=== PATIENT | female | born 1935 | race Caucasian/White ===

== ENCOUNTER 2018-01-08 08:05 | Day surgery (SDC) | payer OTHER ==
[2018-01-07 17:26] VITALS: BMI 22.1
[~2018-01-08 08:05] MED LIST: ACETAMINOPHEN 325 MG TABLET (FP) PO PRN; CHONDROITIN SU A/HYALUR SOD 1 KIT IO ONE; EPINEPHrine/PF 1 MG/1 ML (1:1,000) AMPULE IV ONE; LIDOCAINE HCL 1% PRESERVATIVE FREE - 30ML VIAL IO ONE; TETRACAINE 0.5% OPHTH SOLN 2 ML BOTTLE TP ONE
[2018-01-08] MEDS ORDERED: PHENYLEPHRINE 2.5% OPHTH SOLN 15 ML BOTTLE ONE (08:16)
[2018-01-08] MEDS ORDERED: CYCLOPENTOLATE HCL 1% OPHTH SOLN 2 ML BOTTLE ONE (08:16)
[2018-01-08] MEDS ORDERED: CIPROFLOXACIN 0.3% EYE DROPS 5 ML BOTTLE ONE (08:16)
[2018-01-08] MEDS ORDERED: FLURBIPROFEN 0.03% OPHTH SOLN 2.5 ML BOTTLE ONE (08:16)
[2018-01-08] MEDS ORDERED: TROPICAMIDE 1% OPHTH SOLN 15 ML BOTTLE ONE (08:17)
[2018-01-08 08:43] VITALS: TEMP 97.4
[2018-01-08] MEDS: TROPICAMIDE 1% OPHTH SOLN 15 ML BOTTLE OP SCH ×2 (08:45→09:00)
[2018-01-08] MEDS: CIPROFLOXACIN HCL 0.3% OPHTH 2.5ML BOTTLE OP SCH ×3 (08:45→09:00)
[2018-01-08] MEDS: CYCLOPENTOLATE HCL 1% OPHTH SOLN 2 ML BOTTLE OP SCH ×3 (08:45→09:00)
[2018-01-08] MEDS: FLURBIPROFEN 0.03% OPHTH SOLN 2.5 ML BOTTLE OP SCH ×3 (08:45→09:00)
[2018-01-08] MEDS: PHENYLEPHRINE 2.5% OPHTH SOLN 15 ML BOTTLE OP SCH ×3 (08:45→09:00)
[2018-01-08] MEDS ORDERED: MIDAZOLAM HCL 2 MG/2 ML SINGLE DOSE VIAL ONE (10:14)
[2018-01-08] MEDS ORDERED: TETRACAINE 0.5% OPHTH SOLN 2 ML BOTTLE ONE (10:22)
[2018-01-08] MEDS ORDERED: LIDOCAINE HCL/PF 1% SDV 5ML VIAL ONE (10:23)
[2018-01-08] MEDS ORDERED: EPINEPHrine/PF 1 MG/1 ML (1:1,000) AMPULE ONE (10:23)
[2018-01-08] MEDS ORDERED: CHONDROITIN SU A/HYALUR SOD 1 KIT ONE ×3 (10:25→11:47)
[2018-01-08] MEDS ORDERED: TETRACAINE 0.5% OPHTH SOLN 2 ML BOTTLE TP ONE (10:52)
[2018-01-08] MEDS ORDERED: POVIDONE-IODINE 5% OPHTHALMIC PREP 30 ML SOLUTION OS ONE (10:54)
[2018-01-08] MEDS ORDERED: LIDOCAINE HCL 1% PRESERVATIVE FREE - 30ML VIAL IO ONE (11:01)
[2018-01-08] MEDS ORDERED: CHONDROITIN SU A/HYALUR SOD 1 KIT IO ONE ×2 (11:01)
[2018-01-08] MEDS ORDERED: BSS (NA/CA/MG/K) BALANCED SALT SOLUTION OPHTH SOLN 15 ML BOTTLE OS ONE (11:01)
[2018-01-08] MEDS ORDERED: EPINEPHrine/PF 1 MG/1 ML (1:1,000) AMPULE SQ ONE (11:09)
[2018-01-08] MEDS ORDERED: ACETAMINOPHEN 325 MG TABLET (FP) ONE (11:49)
[2018-01-08 12:22] VITALS: BP 127/80; PULSE 54
--- NOTE | 2018-01-08 13:21 | OP ---
DATE OF OPERATION: 01/08/2018 PREOPERATIVE DIAGNOSIS: Cataract, left eye. POSTOPERATIVE DIAGNOSIS: Cataract, left eye. PROCEDURE: Phacoemulsification of left cataract with posterior chamber intraocular lens implantation. Lens used [id number], 24.5 diopter power, serial No. [id number]. SURGEON: Eliazar Cristobal M.D. ANESTHESIA: Topical MAC. COMPLICATIONS: None. DESCRIPTION OF PROCEDURE: The patient was brought to the operating room and correctly identified along with the operative site as well as the correct intraocular lens sorensen. She was then prepped and draped in the usual sterile fashion including 5% Betadine solution in the conjunctival sac and an eyelid drape. An eyelid speculum was then placed into the left eye. A paracentesis port was created and 0.5 mL of preservative free Lidocaine 1% was injected intracamerally. Viscoelastic was then injected to inflate the anterior chamber, and a temporal clear corneal wound was created. A continuous circular capsulorrhexis was performed, and the nucleus hydro-dissected and hydro-delineated with BSS. The cataract was then removed with phacoemulsification via a ijxwzy-kio-fnilwji approach, and the epinuclear material was removed, as well. Irrigation aspiration was then performed of the cortex. Inferiorly, however, the cortex was noted to be adherent and there seemed to be zonular stress while trying to aspirate the cortex despite the anterior capsule not being captured by the IA tip. The remainder of nasal, superior, and temporal cortex was then irrigated and aspirated with the IA tip, avoiding the inferior area. Viscoelastic was then injected to inflate the capsular bag, and using a dry technique, the inferior cortex was gently pulled using a 27-gauge cannula in a dry technique and then completely removed with the IA tip. This was successfully done without any further stress on the inferior zonules. The capsule and zonules were noted to be intact. Further viscoelastic was injected to inflate the capsular bag. The lens was injected into the capsular bag. The viscoelastic was then irrigated and aspirated from the eye. At the end of irrigation, the lens was noted to be well centered, covered by the anterior capsule border. There was again no evidence of any zonule dehiscence. All wounds were tested and found to be watertight. No suture was placed. Topical vancomycin was given, the eye patched and shielded, and the patient discharged from the operating room in a stable condition. ELIAZAR CRISTOBAL M.D. RUBY/[id number] MTDMandi
== END 2018-01-08 12:30 | disposition home or self-care (01) ==
LOC: JASU-SURG 08:05
PROVIDERS: ATTEND Ophthalmology
PROC: 08RK3JZ Replacement of Left Lens with Synthetic Substitute, Percutaneous Approach (ICD-10-PCS; principal; 2018-01-08 10:00)
DX: H26.9 Unspecified cataract (principal); I10 Essential (primary) hypertension; E11.9 Type 2 diabetes mellitus without complications; E78.00 Pure hypercholesterolemia, unspecified; K21.9 Gastro-esophageal reflux disease without esophagitis
CPT/HCPCS: 82962

== ENCOUNTER 2018-01-27 14:44 | Emergency (ER) | payer OTHER ==
--- NOTE | 2018-01-27 15:12 | PDOC ---
Rapid Medical Evaluation Chief Complaint: Rash Time Seen by Provider: 01/27/18 15:09 Medical Evaluation: Allergies Allergy/AdvReac Type Severity Reaction Status Date / Time No Known Allergies Allergy Verified 01/27/18 15:03 01/27/18 15:09 82 year old female with HTN, HLD, NIDDM with 2 weeks of itchy rash, seems to coincide with starting Cymbalta. No SOB. No tongue/lip swelling or throat tightness. Feels it is getting worse. Alert, oriented, no distress. Scattered papular rash, most notable on chest. Lungs CTAB. V/s unremarkable. Plans: -To FT for further evaluation.
[2018-01-27 15:13] VITALS: BP 132/61; PULSE 66; TEMP 98.6; BMI 28.3
--- NOTE | 2018-01-27 16:09 | PDOC ---
History of Present Illness - General Chief Complaint: Rash Stated Complaint: RASH Time Seen by Provider: 01/27/18 15:09 History Source: Patient Exam Limitations: No Limitations - History of Present Illness Initial Comments: 01/27/18 16:04 Best Contact: PCP: Dr. Alireza Saini Pmhx: HLD, HTN, NIDDM Pshx: N/A Allergies: NKDA 82-year-old female presents to the ER complaining of a rash to the anterior neck 2 weeks after taking Duloxetine HCL 20 mg daily. Patient states the rashes just itchy but does not seem to spread or cause any pain. Patient states she hasn't taken anything for the itch but she has continued taking the medication daily as prescribed by her PMD. Patient denies fever, chills, nausea/ vomiting, facial pains, throat swelling, difficulty swallowing, sore throat, chest pain, shortness of breath. Past History - Past Medical History Allergies/Adverse Reactions: Allergies Allergy/AdvReac Type Severity Reaction Status Date / Time No Known Allergies Allergy Verified 01/27/18 15:03 Home Medications: Ambulatory Orders Losartan/Hydrochlorothiazide [Hyzaar 100-25 Tablet] 1 each PO DAILY 09/13/15 Duloxetine HCl 20 mg PO DAILY 01/08/18 Metoprolol Tartrate 100 mg PO DAILY 01/08/18 Nitrofurantoin Macrocrystal [Nitrofurantoin] 100 mg PO BID 01/08/18 Omeprazole 40 mg PO DAILY 01/08/18 Pregabalin [Lyrica] 100 mg PO TID 01/08/18 Sitagliptin Phos/Metformin HCl [Janumet 50-500 mg Tablet] 1 each PO DAILY Anemia: No Asthma: No Cancer: No Cardiac Disorders: No CVA: No COPD: No CHF: No Dementia: No Diabetes: Yes (NIDDM) GI Disorders: No Disorders: No HTN: Yes Hypercholesterolemia: No Liver Disease: No Seizures: No Thyroid Disease: No - Surgical History Abdominal Surgery: No Appendectomy: No Cardiac Surgery: No Cholecystectomy: No Lung Surgery: No Neurologic Surgery: No Orthopedic Surgery: No - Immunization History Immunization Up to Date: Yes - Suicide/Smoking/Psychosocial Hx Smoking Status: No Smoking History: Never smoked Have you smoked in the past 12 months: No Number of Cigarettes Smoked Daily: 0 Hx Alcohol Use: No Drug/Substance Use Hx: No Substance Use Type: None Hx Substance Use Treatment: No Review of Systems - Review of Systems Able to Perform ROS?: Yes Comments:: 01/27/18 16:07 CONSTITUTIONAL: Absent: fever, chills, diaphoresis, generalized weakness, malaise, loss of appetite HEENT: Absent: rhinorrhea, nasal congestion, throat pain, throat swelling, difficulty swallowing, mouth swelling, ear pain, eye pain, visual Changes CARDIOVASCULAR: Absent: chest pain, loss of consciousness, palpitations, irregular heart rate, peripheral edema RESPIRATORY: Absent: cough, shortness of breath, dyspnea with exertion, orthopnea, wheezing, stridor, hemoptysis GASTROINTESTINAL: Absent: abdominal pain, abdominal distension, nausea, vomiting, diarrhea, constipation, melena, hematochezia GENITOURINARY: Absent: dysuria, frequency, urgency, hesitancy, hematuria, flank pain, genital pain MUSCULOSKELETAL: Absent: myalgia, arthralgia, joint swelling SKIN: Ant neck rash/+itch Absent:pallor HEMATOLOGIC/IMMUNOLOGIC: Absent: easy bleeding, easy bruising, lymphadenopathy, frequent infections ENDOCRINE: Absent: unexplained weight gain, unexplained weight loss, heat intolerance, cold intolerance NEUROLOGIC: Absent: headache, focal weakness or paresthesias, dizziness, unsteady gait, seizure, mental status changes, bladder or bowel incontinence PSYCHIATRIC: Absent: anxiety, depression, suicidal or homicidal ideation, hallucinations. Is the patient limited [place] proficient: No *Physical Exam - Vital Signs Last Vital Signs Temp Pulse Resp BP Pulse Ox 98.6 F 66 18 132/61 96 01/27/18 15:04 01/27/18 15:04 01/27/18 15:04 01/27/18 15:04 01/27/18 15:04 - Physical Exam Comments: 01/27/18 16:08 GENERAL: Well developed, well nourished. Awake and alert. No acute distress. HEENT: Normocephalic, atraumatic. PERRLA, EOMI. No conjunctival pallor. Sclera are non- icteric. Moist mucous membranes. Oropharynx is clear. NECK: Supple. Full ROM. No JVD. Carotid pulses 2+ and symmetric, without bruits. No thyromegaly. No lymphadenopathy. CARDIOVASCULAR: Regular rate and rhythm. No murmurs, rubs, or gallops. Distal pulses are 2+ and symmetric. PULMONARY: No evidence of respiratory distress. Lungs clear to auscultation bilaterally. No wheezing, rales or rhonchi. ABDOMINAL: Soft. Non-tender. Non-distended. No rebound or guarding. No organomegaly. Normoactive bowel sounds. MUSCULOSKELETAL Normal range of motion at all joints. No bony deformities or tenderness. No CVA tenderness. EXTREMITIES: No cyanosis. No clubbing. No edema. No calf tenderness. SKIN: + Anterior neck rash /no pain on palpation Warm and dry. Normal capillary refill. No rashes. No jaundice. NEUROLOGICAL: Alert, awake, appropriate. Cranial nerves 2-12 intact. No deficits to light touch and temperature in face, upper extremities and lower extremities. No motor deficits in the in face, upper extremities and lower extremities. Normoreflexic in the upper and lower extremities. Normal speech. Toes are down- going bilaterally. Gait is normal without ataxia. PSYCHIATRIC: Cooperative. Good eye contact. Appropriate mood and affect. Moderate Sedation - Procedure Monitoring Vital Signs: Vital Signs Temp Pulse Resp BP Pulse Ox 98.6 F 66 18 132/61 96 01/27/18 15:04 01/27/18 15:04 01/27/18 15:04 01/27/18 15:04 01/27/18 15:04 *DC/Admit/Observation/Transfer Diagnosis at time of Disposition: Rash - Discharge Dispostion Disposition: HOME Condition at time of disposition: Stable Decision to Admit order: No - Referrals Referrals: Librado Saini MD [Primary Care Provider] - - Patient Instructions Printed Discharge Instructions: DI for Rash Additional Instructions: Follow-up with your doctor tomorrow at 1 PM Stopped taking the medication/Duloxetine Benadryl as needed for the itch Return back to the emergency department for chest pain, shortness of breath or worsening symptoms - Post Discharge Activity Progress Note - Progress Note Progress Note: 1602hrs: Spoke to the patient's PMD/Dr. Librado Chapin. He will see the patient at 1300 hrs. tomorrow/Saturday, 01/28/2018.
== END 2018-01-27 16:23 | disposition home or self-care (01) ==
LOC: JER 14:44
DX: L27.1 Localized skin eruption due to drugs and medicaments taken internally (principal); T43.215A Adverse effect of selective serotonin and norepinephrine reuptake inhibitors, initial encounter; Y92.038 Other place in apartment as the place of occurrence of the external cause; I10 Essential (primary) hypertension; E78.00 Pure hypercholesterolemia, unspecified; E11.9 Type 2 diabetes mellitus without complications; Z79.84 Long term (current) use of oral hypoglycemic drugs
CPT/HCPCS: 99281-25

== ENCOUNTER 2020-08-21 13:56 | Inpatient (IN) | payer OTHER ==
[2020-08-21] MEDS ORDERED: SODIUM CHLORIDE 0.9% 500 ML INFUS.BAG IV ONE (14:45)
[2020-08-21] MEDS ORDERED: ACETAMINOPHEN 1000 MG/100 ML BAG IVPB ONE (14:45)
[2020-08-21] MEDS ORDERED: ACETAMINOPHEN INJECTION 100 ML IVPB ONE (15:00)
[2020-08-21] MEDS ORDERED: LACTATED RINGERS SOLUTION 1000 ML INFUS.BAG IV ONE ×2 (15:08→15:18)
[2020-08-21 15:17] LABS: BASO % 0.1 % (0-2.0); HEMATOCRIT 58.5 % (32.4-45.2); HEMOGLOBIN 18.2 GM/dL (10.7-15.3); LYMPH % 3.1 % (8-40); MCH 29.1 pg (25.7-33.7); MCHC 31.1 g/dl (32.0-36.0); MEAN CELL VOLUME 93.7 fl (80-96); MEAN PLT VOLUME 12.5 fl (7.5-11.1); MONO % 5.2 % (3.8-10.2); NEUT % 91.6 % (42.8-82.8); PLATELET COUNT 250 K/MM3 (134-434); RBC 6.24 M/mm3 (3.60-5.2); RDW 14.9 % (11.6-15.6)
[2020-08-21] MEDS ORDERED: METOPROLOL TARTRATE 5 MG/5 ML VIAL IVPUSH ONE (15:18)
[2020-08-21 15:26] LABS: INR 0.95 (0.83-1.09); PROTHROMBIN TIME (PATIENT) 11.7 SEC (9.7-13.0)
[2020-08-21 15:29] LABS: ACTIVATED PTT 25.1 SECONDS (25.2-36.5)
[2020-08-21 15:36] LABS: BLOOD UREA NITROGEN 82.8 mg/dL (7-18); CALCIUM 10.5 mg/dL (8.5-10.1); VENOUS BASE EXCESS -13.3 mmol/L (-2-2); VENOUS O2 SATURATION 83.6 % (70-80); VENOUS PCO2 27.9 mmHg (38-52); VENOUS PH 7.248 (7.310-7.410)
[2020-08-21 15:37] LABS: ALBUMIN 3.4 g/dl (3.4-5.0)
[2020-08-21 15:39] LABS: BILIRUBIN,DIRECT 0.2 mg/dL (0.0-0.2)
[2020-08-21 15:40] LABS: CREATININE 3.2 mg/dL (0.55-1.3)
[2020-08-21 15:41] LABS: BILIRUBIN,TOTAL 0.5 mg/dL (0.2-1); TOT PROT 8.5 g/dl (6.4-8.2)
[2020-08-21] MEDS ORDERED: INSULIN REGULAR HUMAN 100 UNITS/ML *VIAL* (FOR IVP) IVPUSH ONE (15:51)
[2020-08-21 15:57] LABS: URINE APPEARANCE CLEAR; URINE BILIRUBIN NEGATIVE (NEGATIVE); URINE COLOR YELLOW; URINE GLUCOSE (UA) 3+ (NEGATIVE); URINE KETONE 1+ (NEGATIVE); URINE LEUK ESTERASE NEGATIVE (NEGATIVE); URINE NITRITE NEGATIVE (NEGATIVE); URINE PROTEIN TRACE (NEGATIVE); URINE UROBILINOGEN 0.2 mg/dL (0.2-1.0)
[2020-08-21] MEDS ORDERED: INSULIN REGULAR 100 UNITS in SODIUM CHLORIDE 99 ML IVPB SCH ×2 (16:00→20:45)
[2020-08-21 18:54] LABS: CALCIUM 8.4 mg/dL (8.5-10.1)
[2020-08-21 18:58] LABS: CREATININE 2.3 mg/dL (0.55-1.3)
[2020-08-21] MEDS ORDERED: ASCORBIC ACID 500 MG TABLET (FP) PO SCH (20:00)
[2020-08-21] MEDS ORDERED: SODIUM CHLORIDE 0.45%/POT 20 MEQ/1,000 ML INFUS.BAG IV SCH (20:00)
[2020-08-21] MEDS ORDERED: PIPERACILLIN/TAZOB 2.25 GM 2.25 GM in DEXTROSE 5%-WATER - 50 ML IVPB SCH (20:15)
[2020-08-21] MEDS ORDERED: DEXTROSE 50%-WATER - 25 GM/50 ML VIAL IVPUSH PRN (20:36)
[2020-08-21 20:54] LABS: CALCIUM 8.8 mg/dL (8.5-10.1)
[2020-08-21 20:55] LABS: BLOOD UREA NITROGEN 64.9 mg/dL (7-18)
[2020-08-21 20:58] LABS: CREATININE 2.2 mg/dL (0.55-1.3)
[2020-08-21] MEDS: ZINC SULFATE 220 MG CAPSULE (FP) PO SCH (21:48)
[2020-08-21] MEDS: DEXAMETHASONE SOD PHOSPHATE 4 MG/1 ML VIAL IVPUSH SCH (21:48)
[2020-08-21] MEDS: APIXABAN 2.5 MG TABLET PO SCH (21:48)
[2020-08-21] MEDS: ASCORBIC ACID 500 MG TABLET (FP) PO SCH ×2 (21:48→22:59)
[2020-08-21] MEDS ORDERED: APIXABAN 5 MG TABLET PO SCH (22:00)
[2020-08-21] MEDS ORDERED: REMDESIVIR 200 MG in SODIUM CHLORIDE 210 ML IVPB ONE (23:00)
[2020-08-21] MEDS ORDERED: PIPERACILLIN/TAZOBACTAM 2.25 GM VIAL IVPB ONE (23:01)
[2020-08-21] MEDS ORDERED: DEXTROSE 5%-WATER - 50 ML IVPB ONE (23:01)
[2020-08-21] MEDS: PIPERACILLIN/TAZOB 2.25 GM 2.25 GM in DEXTROSE 5%-WATER - 50 ML IVPB SCH (23:02)
[2020-08-22] MEDS: INSULIN SLIDING SCALE (NOVOLOG) 1 VIAL SQ SCH ×5 (01:31→21:22)
[2020-08-22] MEDS ORDERED: DEXTROSE 5%-WATER - 50 ML IVPB ONE ×2 (03:18→10:01)
[2020-08-22] MEDS ORDERED: PIPERACILLIN/TAZOBACTAM 2.25 GM VIAL IVPB ONE ×2 (03:18→10:01)
[2020-08-22] MEDS: PIPERACILLIN/TAZOB 2.25 GM 2.25 GM in DEXTROSE 5%-WATER - 50 ML IVPB SCH ×3 (03:21→19:20)
[2020-08-22] MEDS ORDERED: INSULIN (LEVEMIR) 100 UNITS/ML UNITS SQ SCH (07:00)
[2020-08-22 07:06] LABS: HEMATOCRIT 45.1 % (32.4-45.2); HEMOGLOBIN 14.6 GM/dL (10.7-15.3); LYMPH % 2.1 % (8-40); MCH 29.3 pg (25.7-33.7); MCHC 32.5 g/dl (32.0-36.0); MEAN CELL VOLUME 90.3 fl (80-96); MEAN PLT VOLUME 11.1 fl (7.5-11.1); MONO % 3.3 % (3.8-10.2); NEUT % 94.6 % (42.8-82.8); PLATELET COUNT 159 K/MM3 (134-434); RBC 4.99 M/mm3 (3.60-5.2); RDW 14.1 % (11.6-15.6); WHITE BLOOD COUNT 17.9 K/mm3 (4.0-10.0)
[2020-08-22 07:36] LABS: ALBUMIN 2.4 g/dl (3.4-5.0); BLOOD UREA NITROGEN 57.6 mg/dL (7-18)
[2020-08-22 07:37] LABS: CALCIUM 8.7 mg/dL (8.5-10.1); MAGNESIUM 2.9 mg/dL (1.8-2.4)
[2020-08-22 07:39] LABS: CREATININE 2.1 mg/dL (0.55-1.3); PHOSPHOROUS 2.7 mg/dL (2.5-4.9)
[2020-08-22 07:41] LABS: BILIRUBIN,TOTAL 0.5 mg/dL (0.2-1)
[2020-08-22] MEDS ORDERED: SODIUM CHLORIDE 0.45% 1,000 ML IV SCH (07:45)
[2020-08-22 08:35] VITALS: BMI 22.3
[2020-08-22] MEDS: DEXAMETHASONE SOD PHOSPHATE 4 MG/1 ML VIAL IVPUSH SCH (10:08)
[2020-08-22] MEDS: ASCORBIC ACID 500 MG TABLET (FP) PO SCH ×2 (10:09→21:16)
[2020-08-22] MEDS: ZINC SULFATE 220 MG CAPSULE (FP) PO SCH (10:09)
[2020-08-22] MEDS: APIXABAN 2.5 MG TABLET PO SCH ×2 (10:11→21:16)
[2020-08-22] MEDS: INSULIN (LEVEMIR) 100 UNITS/ML UNITS SQ SCH ×2 (10:17→21:22)
[2020-08-22 10:20] LABS: ANISOCYTOSIS 0; MACROCYTOSIS 0; PLATELET ESTIMATE NORMAL
[2020-08-22] MEDS: SODIUM CHLORIDE 0.45% 1,000 ML IV SCH (16:26)
[2020-08-22] MEDS ORDERED: DEXTROSE 5%-WATER 100 ML IVPB ONE (16:46)
[2020-08-22] MEDS: CEFTRIAXONE 2 GM in DEXTROSE 5%-WATER 2 GM/100 ML BAG IVPB SCH (16:50)
[2020-08-22] MEDS ORDERED: REMDESIVIR 100 MG in SODIUM CHLORIDE 230 ML IVPB SCH (23:00)
[2020-08-22] MEDS ORDERED: PT OWN MED DRAWER 7, Y5N ONE (23:09)
[2020-08-22] MEDS ORDERED: DEXTROSE 50%-WATER - 25 GM/50 ML VIAL IVPUSH PRN (23:44)
[2020-08-23] MEDS: INSULIN SLIDING SCALE (NOVOLOG) 1 VIAL SQ SCH ×4 (06:53→22:49)
[2020-08-23 07:44] LABS: HEMATOCRIT 44.4 % (32.4-45.2); HEMOGLOBIN 14.5 GM/dL (10.7-15.3); MCH 29.4 pg (25.7-33.7); MCHC 32.7 g/dl (32.0-36.0); MEAN CELL VOLUME 89.9 fl (80-96); MEAN PLT VOLUME 11.5 fl (7.5-11.1); PLATELET COUNT 148 K/MM3 (134-434); RBC 4.94 M/mm3 (3.60-5.2); RDW 14.1 % (11.6-15.6); WHITE BLOOD COUNT 13.3 K/mm3 (4.0-10.0)
[2020-08-23 08:06] LABS: ALBUMIN 2.1 g/dl (3.4-5.0); BLOOD UREA NITROGEN 58.8 mg/dL (7-18); CALCIUM 8.7 mg/dL (8.5-10.1)
[2020-08-23 08:09] LABS: CREATININE 1.8 mg/dL (0.55-1.3)
[2020-08-23 08:10] LABS: BILIRUBIN,TOTAL 0.3 mg/dL (0.2-1); TOT PROT 5.8 g/dl (6.4-8.2)
[2020-08-23] MEDS ORDERED: PT OWN MED DRAWER 7, Y5N ONE (09:27)
[2020-08-23] MEDS ORDERED: DEXTROSE 5%-WATER 100 ML IVPB ONE (09:28)
[2020-08-23] MEDS ORDERED: DEXAMETHASONE SOD PHOSPHATE 4 MG/1 ML VIAL IVPUSH SCH (10:00)
[2020-08-23] MEDS: ZINC SULFATE 220 MG CAPSULE (FP) PO SCH (10:07)
[2020-08-23] MEDS: ASCORBIC ACID 500 MG TABLET (FP) PO SCH ×2 (10:07→22:36)
[2020-08-23] MEDS: DEXAMETHASONE SOD PHOSPHATE 4 MG/1 ML VIAL IVPUSH SCH (10:07)
[2020-08-23] MEDS: CEFTRIAXONE 2 GM in DEXTROSE 5%-WATER 2 GM/100 ML BAG IVPB SCH (10:07)
[2020-08-23] MEDS: APIXABAN 2.5 MG TABLET PO SCH ×2 (10:07→22:37)
[2020-08-23] MEDS: INSULIN (LEVEMIR) 100 UNITS/ML UNITS SQ SCH ×2 (10:08→22:49)
[2020-08-23] MEDS ORDERED: amLODIPine BESYLATE 2.5 MG TABLET (FP) PO ONE (10:27)
[2020-08-23] MEDS: SODIUM CHLORIDE 0.45% 1,000 ML IV SCH (16:49)
[2020-08-24] MEDS: INSULIN SLIDING SCALE (NOVOLOG) 1 VIAL SQ SCH ×4 (06:13→21:23)
[2020-08-24 08:30] LABS: ALBUMIN 1.9 g/dl (3.4-5.0); BILIRUBIN,TOTAL 0.7 mg/dL (0.2-1); BLOOD UREA NITROGEN 49.2 mg/dL (7-18); CALCIUM 8.6 mg/dL (8.5-10.1); CREATININE 1.4 mg/dL (0.55-1.3); TOT PROT 5.3 g/dl (6.4-8.2)
[2020-08-24] MEDS ORDERED: DEXTROSE 5%-WATER 100 ML IVPB ONE (09:55)
[2020-08-24] MEDS: CEFTRIAXONE 2 GM in DEXTROSE 5%-WATER 2 GM/100 ML BAG IVPB SCH (09:56)
[2020-08-24] MEDS: ASCORBIC ACID 500 MG TABLET (FP) PO SCH ×2 (09:56→21:23)
[2020-08-24] MEDS: ZINC SULFATE 220 MG CAPSULE (FP) PO SCH (09:57)
[2020-08-24] MEDS: DEXAMETHASONE SOD PHOSPHATE 4 MG/1 ML VIAL IVPUSH SCH (09:57)
[2020-08-24] MEDS: APIXABAN 2.5 MG TABLET PO SCH ×2 (09:57→21:23)
[2020-08-24] MEDS: INSULIN (LEVEMIR) 100 UNITS/ML UNITS SQ SCH ×2 (09:58→21:23)
[2020-08-24] MEDS: SODIUM CHLORIDE 0.45% 1,000 ML IV SCH (13:00)
[2020-08-25] MEDS: INSULIN SLIDING SCALE (NOVOLOG) 1 VIAL SQ SCH ×3 (06:58→15:43)
[2020-08-25 07:57] LABS: BASO % 0.2 % (0-2.0); EOS % 0.1 % (0-4.5); HEMATOCRIT 46.1 % (32.4-45.2); HEMOGLOBIN 15.1 GM/dL (10.7-15.3); LYMPH % 6.4 % (8-40); MCH 29.3 pg (25.7-33.7); MCHC 32.7 g/dl (32.0-36.0); MEAN CELL VOLUME 89.6 fl (80-96); MEAN PLT VOLUME 12.1 fl (7.5-11.1); MONO % 6.3 % (3.8-10.2); PLATELET COUNT 142 K/MM3 (134-434); RBC 5.14 M/mm3 (3.60-5.2); RDW 13.8 % (11.6-15.6); WHITE BLOOD COUNT 17.9 K/mm3 (4.0-10.0)
[2020-08-25 08:01] LABS: ALBUMIN 2.1 g/dl (3.4-5.0); BLOOD UREA NITROGEN 40.1 mg/dL (7-18); CALCIUM 8.7 mg/dL (8.5-10.1)
[2020-08-25 08:06] LABS: BILIRUBIN,TOTAL 0.4 mg/dL (0.2-1); TOT PROT 5.8 g/dl (6.4-8.2)
[2020-08-25] MEDS ORDERED: DEXTROSE 5%-WATER 100 ML IVPB ONE (10:23)
[2020-08-25] MEDS: DEXAMETHASONE SOD PHOSPHATE 4 MG/1 ML VIAL IVPUSH SCH (10:34)
[2020-08-25] MEDS: CEFTRIAXONE 2 GM in DEXTROSE 5%-WATER 2 GM/100 ML BAG IVPB SCH (10:35)
[2020-08-25] MEDS: ZINC SULFATE 220 MG CAPSULE (FP) PO SCH (10:35)
[2020-08-25] MEDS: APIXABAN 2.5 MG TABLET PO SCH ×2 (10:35→21:15)
[2020-08-25] MEDS: ASCORBIC ACID 500 MG TABLET (FP) PO SCH ×2 (10:35→21:15)
[2020-08-25 10:50] LABS: ANISOCYTOSIS 1+; MACROCYTOSIS 0; PLATELET ESTIMATE DECREASED; TEAR DROP CELLS 1+
[2020-08-25] MEDS: INSULIN (LEVEMIR) 100 UNITS/ML UNITS SQ SCH ×2 (10:50→21:15)
[2020-08-25] MEDS: SODIUM CHLORIDE 0.45% 1,000 ML IV SCH (13:00)
[2020-08-25] MEDS ORDERED: REMDESIVIR 200 MG in SODIUM CHLORIDE 210 ML IVPB ONE (15:00)
[2020-08-25] MEDS: LOSARTAN POTASSIUM 50 MG TABLET PO SCH (15:42)
[2020-08-26] MEDS: INSULIN SLIDING SCALE (NOVOLOG) 1 VIAL SQ SCH ×5 (00:13→21:29)
[2020-08-26 07:56] LABS: BASO % 0.1 % (0-2.0); EOS % 0.2 % (0-4.5); HEMATOCRIT 47.9 % (32.4-45.2); HEMOGLOBIN 15.9 GM/dL (10.7-15.3); LYMPH % 6.8 % (8-40); MCH 29.6 pg (25.7-33.7); MCHC 33.2 g/dl (32.0-36.0); MEAN CELL VOLUME 89.1 fl (80-96); MEAN PLT VOLUME 11.3 fl (7.5-11.1); MONO % 5.3 % (3.8-10.2); NEUT % 87.6 % (42.8-82.8); PLATELET COUNT 144 K/MM3 (134-434); RBC 5.38 M/mm3 (3.60-5.2); RDW 13.4 % (11.6-15.6); WHITE BLOOD COUNT 19.6 K/mm3 (4.0-10.0)
[2020-08-26 08:00] LABS: BILIRUBIN,TOTAL 0.4 mg/dL (0.2-1); BLOOD UREA NITROGEN 33.1 mg/dL (7-18); CALCIUM 8.6 mg/dL (8.5-10.1); MAGNESIUM 1.9 mg/dL (1.8-2.4); PHOSPHOROUS 2.6 mg/dL (2.5-4.9); TOT PROT 5.7 g/dl (6.4-8.2)
[2020-08-26 09:22] LABS: INR 1.23 (0.83-1.09); PROTHROMBIN TIME (PATIENT) 14.8 SEC (9.7-13.0)
[2020-08-26 09:25] LABS: ACTIVATED PTT 29.1 SECONDS (25.2-36.5)
[2020-08-26] MEDS ORDERED: DEXTROSE 5%-WATER 100 ML IVPB ONE (09:36)
[2020-08-26 10:19] LABS: ANISOCYTOSIS 0; MACROCYTOSIS 0; PLATELET ESTIMATE DECREASED
[2020-08-26] MEDS: DEXAMETHASONE SOD PHOSPHATE 4 MG/1 ML VIAL IVPUSH SCH (10:21)
[2020-08-26] MEDS: LOSARTAN POTASSIUM 50 MG TABLET PO SCH (10:21)
[2020-08-26] MEDS: APIXABAN 2.5 MG TABLET PO SCH ×2 (10:26→21:29)
[2020-08-26] MEDS: CEFTRIAXONE 2 GM in DEXTROSE 5%-WATER 2 GM/100 ML BAG IVPB SCH (10:26)
[2020-08-26] MEDS: ZINC SULFATE 220 MG CAPSULE (FP) PO SCH (10:26)
[2020-08-26] MEDS: ASCORBIC ACID 500 MG TABLET (FP) PO SCH ×2 (10:27→21:29)
[2020-08-26] MEDS: INSULIN (LEVEMIR) 100 UNITS/ML UNITS SQ SCH ×2 (11:18→21:29)
[2020-08-26] MEDS: REMDESIVIR 100 MG in SODIUM CHLORIDE 230 ML IVPB SCH (15:03)
[2020-08-26] MEDS: SODIUM CHLORIDE 0.45% 1,000 ML IV SCH (15:03)
[2020-08-27] MEDS: INSULIN SLIDING SCALE (NOVOLOG) 1 VIAL SQ SCH ×4 (06:06→21:57)
[2020-08-27 07:32] LABS: BASO % 0.2 % (0-2.0); EOS % 0.2 % (0-4.5); HEMATOCRIT 45.6 % (32.4-45.2); HEMOGLOBIN 15.2 GM/dL (10.7-15.3); LYMPH % 6.3 % (8-40); MCH 29.7 pg (25.7-33.7); MCHC 33.4 g/dl (32.0-36.0); MEAN CELL VOLUME 88.9 fl (80-96); MEAN PLT VOLUME 11.7 fl (7.5-11.1); MONO % 4.3 % (3.8-10.2); PLATELET COUNT 143 K/MM3 (134-434); RBC 5.13 M/mm3 (3.60-5.2); RDW 13.5 % (11.6-15.6); WHITE BLOOD COUNT 24.3 K/mm3 (4.0-10.0)
[2020-08-27 07:58] LABS: CALCIUM 8.3 mg/dL (8.5-10.1)
[2020-08-27 07:59] LABS: ALBUMIN 1.9 g/dl (3.4-5.0); BLOOD UREA NITROGEN 33.6 mg/dL (7-18)
[2020-08-27 08:02] LABS: CREATININE 0.8 mg/dL (0.55-1.3)
[2020-08-27 08:03] LABS: BILIRUBIN,TOTAL 0.5 mg/dL (0.2-1); TOT PROT 5.4 g/dl (6.4-8.2)
[2020-08-27 09:13] LABS: ANISOCYTOSIS 0; HELMET CELLS 0; HOWELL-JOLLY BODIES 0; MACROCYTOSIS 0; OVALOCYTE 0; PLATELET ESTIMATE DECREASED; ROULEAU 0; SICKELED CELLS 0; TARGET CELLS 0; TEAR DROP CELLS 0; TOXIC GRANULATION 0
[2020-08-27] MEDS ORDERED: PT OWN MED DRAWER 7, Y5N ONE (10:00)
[2020-08-27] MEDS ORDERED: DEXTROSE 5%-WATER 100 ML IVPB ONE (10:00)
[2020-08-27] MEDS: ASCORBIC ACID 500 MG TABLET (FP) PO SCH ×2 (10:03→21:49)
[2020-08-27] MEDS: ZINC SULFATE 220 MG CAPSULE (FP) PO SCH (10:03)
[2020-08-27] MEDS: DEXAMETHASONE SOD PHOSPHATE 4 MG/1 ML VIAL IVPUSH SCH (10:04)
[2020-08-27] MEDS: APIXABAN 2.5 MG TABLET PO SCH ×2 (10:04→21:49)
[2020-08-27] MEDS: LOSARTAN POTASSIUM 50 MG TABLET PO SCH (10:04)
[2020-08-27] MEDS: CEFTRIAXONE 2 GM in DEXTROSE 5%-WATER 2 GM/100 ML BAG IVPB SCH (10:05)
[2020-08-27] MEDS: INSULIN (LEVEMIR) 100 UNITS/ML UNITS SQ SCH ×2 (10:20→21:58)
[2020-08-27] MEDS: REMDESIVIR 100 MG in SODIUM CHLORIDE 230 ML IVPB SCH (14:39)
[2020-08-28] MEDS: FAMOTIDINE 20 MG TABLET PO SCH ×3 (03:17→22:05)
[2020-08-28] MEDS: INSULIN SLIDING SCALE (NOVOLOG) 1 VIAL SQ SCH ×4 (06:55→22:05)
[2020-08-28 07:23] LABS: BASO % 0.2 % (0-2.0); EOS % 0.1 % (0-4.5); HEMATOCRIT 46.7 % (32.4-45.2); HEMOGLOBIN 15.4 GM/dL (10.7-15.3); LYMPH % 7.6 % (8-40); MCH 29.3 pg (25.7-33.7); MCHC 33.1 g/dl (32.0-36.0); MEAN CELL VOLUME 88.6 fl (80-96); MEAN PLT VOLUME 12.2 fl (7.5-11.1); MONO % 3.6 % (3.8-10.2); NEUT % 88.5 % (42.8-82.8); PLATELET COUNT 183 K/MM3 (134-434); RBC 5.27 M/mm3 (3.60-5.2); RDW 13.6 % (11.6-15.6); WHITE BLOOD COUNT 25.3 K/mm3 (4.0-10.0)
[2020-08-28 07:43] LABS: CALCIUM 8.3 mg/dL (8.5-10.1)
[2020-08-28 07:44] LABS: ALBUMIN 1.9 g/dl (3.4-5.0); BLOOD UREA NITROGEN 33.3 mg/dL (7-18)
[2020-08-28 07:47] LABS: CREATININE 0.8 mg/dL (0.55-1.3)
[2020-08-28 07:48] LABS: BILIRUBIN,TOTAL 0.4 mg/dL (0.2-1); TOT PROT 5.6 g/dl (6.4-8.2)
[2020-08-28 08:41] LABS: ANISOCYTOSIS 1+; MACROCYTOSIS 0; PLATELET ESTIMATE NORMAL
[2020-08-28] MEDS ORDERED: DEXTROSE 5%-WATER 100 ML IVPB ONE (09:30)
[2020-08-28] MEDS: APIXABAN 2.5 MG TABLET PO SCH ×2 (09:40→22:05)
[2020-08-28] MEDS: ASCORBIC ACID 500 MG TABLET (FP) PO SCH ×2 (09:40→22:05)
[2020-08-28] MEDS: CEFTRIAXONE 2 GM in DEXTROSE 5%-WATER 2 GM/100 ML BAG IVPB SCH (09:40)
[2020-08-28] MEDS: LOSARTAN POTASSIUM 50 MG TABLET PO SCH (09:40)
[2020-08-28] MEDS: ZINC SULFATE 220 MG CAPSULE (FP) PO SCH (09:40)
[2020-08-28] MEDS: DEXAMETHASONE SOD PHOSPHATE 4 MG/1 ML VIAL IVPUSH SCH (09:41)
[2020-08-28] MEDS: INSULIN (LEVEMIR) 100 UNITS/ML UNITS SQ SCH ×2 (10:56→22:03)
[2020-08-28] MEDS: REMDESIVIR 100 MG in SODIUM CHLORIDE 230 ML IVPB SCH (14:48)
[2020-08-29] MEDS: INSULIN SLIDING SCALE (NOVOLOG) 1 VIAL SQ SCH ×4 (06:32→21:23)
[2020-08-29 07:55] LABS: BASO % 0.1 % (0-2.0); HEMOGLOBIN 15.9 GM/dL (10.7-15.3); LYMPH % 3.5 % (8-40); MCH 29.2 pg (25.7-33.7); MCHC 33.1 g/dl (32.0-36.0); MEAN CELL VOLUME 88.4 fl (80-96); MEAN PLT VOLUME 12.1 fl (7.5-11.1); MONO % 4.4 % (3.8-10.2); PLATELET COUNT 197 K/MM3 (134-434); RBC 5.43 M/mm3 (3.60-5.2); RDW 13.8 % (11.6-15.6); WHITE BLOOD COUNT 26.2 K/mm3 (4.0-10.0)
[2020-08-29 08:15] LABS: CALCIUM 8.4 mg/dL (8.5-10.1)
[2020-08-29 08:16] LABS: ALBUMIN 1.9 g/dl (3.4-5.0); BLOOD UREA NITROGEN 33.2 mg/dL (7-18)
[2020-08-29 08:19] LABS: BILIRUBIN,TOTAL 0.6 mg/dL (0.2-1); CREATININE 0.8 mg/dL (0.55-1.3); TOT PROT 5.7 g/dl (6.4-8.2)
[2020-08-29] MEDS: CEFTRIAXONE 2 GM in DEXTROSE 5%-WATER 2 GM/100 ML BAG IVPB SCH (10:23)
[2020-08-29] MEDS ORDERED: DEXTROSE 5%-WATER 100 ML IVPB ONE (10:47)
[2020-08-29] MEDS: DEXAMETHASONE SOD PHOSPHATE 4 MG/1 ML VIAL IVPUSH SCH (10:48)
[2020-08-29] MEDS: APIXABAN 2.5 MG TABLET PO SCH ×2 (10:48→21:17)
[2020-08-29] MEDS: ZINC SULFATE 220 MG CAPSULE (FP) PO SCH (10:48)
[2020-08-29] MEDS: ASCORBIC ACID 500 MG TABLET (FP) PO SCH ×2 (10:48→21:17)
[2020-08-29] MEDS: FAMOTIDINE 20 MG TABLET PO SCH ×2 (10:48→21:17)
[2020-08-29] MEDS: LOSARTAN POTASSIUM 50 MG TABLET PO SCH (10:49)
[2020-08-29] MEDS: INSULIN (LEVEMIR) 100 UNITS/ML UNITS SQ SCH ×2 (10:56→21:24)
[2020-08-29 11:55] LABS: ANISOCYTOSIS 0; MACROCYTOSIS 0; PLATELET ESTIMATE NORMAL
[2020-08-29] MEDS: SODIUM CHLORIDE 0.45% 1,000 ML IV SCH (12:23)
[2020-08-29] MEDS: REMDESIVIR 100 MG in SODIUM CHLORIDE 230 ML IVPB SCH (14:26)
[2020-08-29] MEDS ORDERED: DEXAMETHASONE SOD PHOSPHATE 4 MG/1 ML VIAL IVPUSH ONE (22:00)
[2020-08-30] MEDS: SODIUM CHLORIDE 0.45% 1,000 ML IV SCH (04:46)
[2020-08-30] MEDS: INSULIN SLIDING SCALE (NOVOLOG) 1 VIAL SQ SCH ×4 (07:13→22:18)
[2020-08-30 07:31] LABS: ALBUMIN 1.7 g/dl (3.4-5.0); BLOOD UREA NITROGEN 31.3 mg/dL (7-18); CALCIUM 8.2 mg/dL (8.5-10.1)
[2020-08-30 07:34] LABS: CREATININE 0.7 mg/dL (0.55-1.3)
[2020-08-30 07:35] LABS: BILIRUBIN,TOTAL 0.5 mg/dL (0.2-1); TOT PROT 5.4 g/dl (6.4-8.2)
[2020-08-30] MEDS ORDERED: DEXTROSE 5%-WATER 100 ML IVPB ONE (09:18)
[2020-08-30] MEDS: LOSARTAN POTASSIUM 50 MG TABLET PO SCH (09:22)
[2020-08-30] MEDS: ASCORBIC ACID 500 MG TABLET (FP) PO SCH ×2 (09:22→22:17)
[2020-08-30] MEDS: MULTIVITAMINS THER W-MINERALS COMBO TABLET (FP) PO SCH (09:22)
[2020-08-30] MEDS: ZINC SULFATE 220 MG CAPSULE (FP) PO SCH (09:22)
[2020-08-30] MEDS: FAMOTIDINE 20 MG TABLET PO SCH ×2 (09:22→22:17)
[2020-08-30] MEDS: APIXABAN 2.5 MG TABLET PO SCH ×2 (09:22→22:17)
[2020-08-30] MEDS: DEXAMETHASONE SOD PHOSPHATE 4 MG/1 ML VIAL IVPUSH SCH (09:22)
[2020-08-30] MEDS: CEFTRIAXONE 2 GM in DEXTROSE 5%-WATER 2 GM/100 ML BAG IVPB SCH (09:24)
[2020-08-30] MEDS: INSULIN (LEVEMIR) 100 UNITS/ML UNITS SQ SCH ×2 (11:09→22:17)
[2020-08-31] MEDS: INSULIN SLIDING SCALE (NOVOLOG) 1 VIAL SQ SCH ×4 (06:44→22:50)
[2020-08-31] MEDS ORDERED: DEXTROSE 5%-WATER 100 ML IVPB ONE (08:24)
[2020-08-31 08:31] LABS: ALBUMIN 1.9 g/dl (3.4-5.0); BLOOD UREA NITROGEN 29.5 mg/dL (7-18); CALCIUM 8.3 mg/dL (8.5-10.1)
[2020-08-31 08:32] LABS: BILIRUBIN,TOTAL 0.5 mg/dL (0.2-1)
[2020-08-31 08:33] LABS: TOT PROT 5.9 g/dl (6.4-8.2)
[2020-08-31 08:35] LABS: CREATININE 0.8 mg/dL (0.55-1.3)
[2020-08-31] MEDS: DEXAMETHASONE SOD PHOSPHATE 4 MG/1 ML VIAL IVPUSH SCH (09:05)
[2020-08-31] MEDS: CEFTRIAXONE 2 GM in DEXTROSE 5%-WATER 2 GM/100 ML BAG IVPB SCH (09:05)
[2020-08-31] MEDS: MULTIVITAMINS THER W-MINERALS COMBO TABLET (FP) PO SCH (09:06)
[2020-08-31] MEDS: ASCORBIC ACID 500 MG TABLET (FP) PO SCH ×2 (09:06→22:50)
[2020-08-31] MEDS: FAMOTIDINE 20 MG TABLET PO SCH ×2 (09:06→22:50)
[2020-08-31] MEDS: APIXABAN 2.5 MG TABLET PO SCH ×2 (09:06→22:50)
[2020-08-31] MEDS: ZINC SULFATE 220 MG CAPSULE (FP) PO SCH (09:07)
[2020-08-31] MEDS: LOSARTAN POTASSIUM 50 MG TABLET PO SCH (09:07)
[2020-08-31] MEDS: INSULIN (LEVEMIR) 100 UNITS/ML UNITS SQ SCH ×2 (10:52→22:50)
[2020-09-01] MEDS: INSULIN SLIDING SCALE (NOVOLOG) 1 VIAL SQ SCH ×4 (07:03→22:21)
[2020-09-01 07:04] LABS: HEMATOCRIT 46.8 % (32.4-45.2); HEMOGLOBIN 15.3 GM/dL (10.7-15.3); LYMPH % 2.6 % (8-40); MCH 29.2 pg (25.7-33.7); MCHC 32.6 g/dl (32.0-36.0); MEAN CELL VOLUME 89.6 fl (80-96); MEAN PLT VOLUME 12.5 fl (7.5-11.1); MONO % 2.7 % (3.8-10.2); NEUT % 94.7 % (42.8-82.8); PLATELET COUNT 209 K/MM3 (134-434); RBC 5.22 M/mm3 (3.60-5.2); RDW 13.8 % (11.6-15.6); WHITE BLOOD COUNT 26.2 K/mm3 (4.0-10.0)
[2020-09-01 07:07] LABS: CHLORIDE 111 mmol/L (98-107); SODIUM 141 mmol/L (136-145)
[2020-09-01 07:13] LABS: ALBUMIN 1.7 g/dl (3.4-5.0); ANION GAP 7 MMOL/L (8-16); BLOOD UREA NITROGEN 27.9 mg/dL (7-18); CALCIUM 8.2 mg/dL (8.5-10.1); CO2 24 mmol/L (21-32); GLUCOSE,RANDOM 96 mg/dL (74-106)
[2020-09-01 07:14] LABS: SGPT/ALT 22 U/L (13-61)
[2020-09-01 07:15] LABS: SGOT/AST 29 U/L (15-37)
[2020-09-01 07:16] LABS: BILIRUBIN,TOTAL 0.6 mg/dL (0.2-1); CREATININE 0.7 mg/dL (0.55-1.3); TOT PROT 5.6 g/dl (6.4-8.2)
[2020-09-01 07:17] LABS: ALK PHOS 129 U/L (45-117)
[2020-09-01] MEDS ORDERED: DEXTROSE 5%-WATER 100 ML IVPB ONE (10:22)
[2020-09-01] MEDS: MULTIVITAMINS THER W-MINERALS COMBO TABLET (FP) PO SCH (10:34)
[2020-09-01] MEDS: ZINC SULFATE 220 MG CAPSULE (FP) PO SCH (10:34)
[2020-09-01] MEDS: CEFTRIAXONE 2 GM in DEXTROSE 5%-WATER 2 GM/100 ML BAG IVPB SCH (10:34)
[2020-09-01] MEDS: LOSARTAN POTASSIUM 50 MG TABLET PO SCH (10:34)
[2020-09-01] MEDS: DEXAMETHASONE SOD PHOSPHATE 4 MG/1 ML VIAL IVPUSH SCH (10:34)
[2020-09-01] MEDS: APIXABAN 2.5 MG TABLET PO SCH ×2 (10:34→22:02)
[2020-09-01] MEDS: ASCORBIC ACID 500 MG TABLET (FP) PO SCH ×2 (10:34→22:02)
[2020-09-01] MEDS: FAMOTIDINE 20 MG TABLET PO SCH ×2 (10:34→22:02)
[2020-09-01] MEDS: INSULIN (LEVEMIR) 100 UNITS/ML UNITS SQ SCH (11:00)
[2020-09-01 11:11] LABS: ANISOCYTOSIS 0; MACROCYTOSIS 0; PLATELET ESTIMATE NORMAL
[2020-09-01] MEDS: ACETAMINOPHEN 325 MG TABLET (FP) PO PRN (22:02)
[2020-09-02] MEDS: INSULIN SLIDING SCALE (NOVOLOG) 1 VIAL SQ SCH ×4 (06:02→22:13)
[2020-09-02] MEDS ORDERED: DEXTROSE 5%-WATER 100 ML IVPB ONE (10:27)
[2020-09-02] MEDS: DEXAMETHASONE SOD PHOSPHATE 4 MG/1 ML VIAL IVPUSH SCH (11:03)
[2020-09-02] MEDS: CEFTRIAXONE 2 GM in DEXTROSE 5%-WATER 2 GM/100 ML BAG IVPB SCH (11:03)
[2020-09-02] MEDS: FAMOTIDINE 20 MG TABLET PO SCH ×2 (11:04→21:59)
[2020-09-02] MEDS: ZINC SULFATE 220 MG CAPSULE (FP) PO SCH (11:04)
[2020-09-02] MEDS: APIXABAN 2.5 MG TABLET PO SCH ×2 (11:04→21:59)
[2020-09-02] MEDS: ASCORBIC ACID 500 MG TABLET (FP) PO SCH ×2 (11:04→21:59)
[2020-09-02] MEDS: MULTIVITAMINS THER W-MINERALS COMBO TABLET (FP) PO SCH (11:04)
[2020-09-02] MEDS: LOSARTAN POTASSIUM 50 MG TABLET PO SCH (12:25)
[2020-09-02] MEDS: ACETAMINOPHEN 325 MG TABLET (FP) PO PRN (22:00)
[2020-09-03] MEDS: INSULIN SLIDING SCALE (NOVOLOG) 1 VIAL SQ SCH ×4 (06:04→22:31)
[2020-09-03] MEDS: ACETAMINOPHEN 325 MG TABLET (FP) PO PRN (06:06)
[2020-09-03 07:55] LABS: ALBUMIN 1.5 g/dl (3.4-5.0); BLOOD UREA NITROGEN 29.5 mg/dL (7-18); CALCIUM 8.7 mg/dL (8.5-10.1)
[2020-09-03 07:59] LABS: CREATININE 0.8 mg/dL (0.55-1.3); TOT PROT 5.6 g/dl (6.4-8.2)
[2020-09-03] MEDS ORDERED: DEXTROSE 5%-WATER 100 ML IVPB ONE (10:06)
[2020-09-03] MEDS: ASCORBIC ACID 500 MG TABLET (FP) PO SCH ×2 (10:30→22:22)
[2020-09-03] MEDS: DEXAMETHASONE SOD PHOSPHATE 4 MG/1 ML VIAL IVPUSH SCH (10:30)
[2020-09-03] MEDS: FAMOTIDINE 20 MG TABLET PO SCH ×2 (10:30→22:22)
[2020-09-03] MEDS: CEFTRIAXONE 2 GM in DEXTROSE 5%-WATER 2 GM/100 ML BAG IVPB SCH (10:31)
[2020-09-03] MEDS: APIXABAN 2.5 MG TABLET PO SCH ×2 (10:31→22:22)
[2020-09-03] MEDS: ZINC SULFATE 220 MG CAPSULE (FP) PO SCH (10:31)
[2020-09-03] MEDS: MULTIVITAMINS THER W-MINERALS COMBO TABLET (FP) PO SCH (10:31)
[2020-09-03] MEDS: AMINO ACIDS/PROTEIN HYDROLYS 30 ML LIQUID.PKT PO SCH (17:59)
[2020-09-04] MEDS: INSULIN SLIDING SCALE (NOVOLOG) 1 VIAL SQ SCH ×4 (06:44→22:54)
[2020-09-04 10:43] LABS: ARTERIAL BLD GAS O2 SATURATION 96.4 mmHg (95-98); ARTERIAL BLOOD GAS BASE EXCESS -20.5 mmol/L (-2-2); ARTERIAL BLOOD GAS PO2 120.4 mmHg (80-100)
[2020-09-04 11:07] LABS: ARTERIAL BLOOD GAS pH 7.028 (7.350-7.450)
[2020-09-04] MEDS: VASOPRESSIN 40 UNITS in SODIUM CHLORIDE 98 ML IVPB SCH ×2 (12:45→20:36)
[2020-09-04 13:21] LABS: HEMATOCRIT 51.8 % (32.4-45.2); HEMOGLOBIN 16.2 GM/dL (10.7-15.3); MCH 29.9 pg (25.7-33.7); MCHC 31.2 g/dl (32.0-36.0); MEAN CELL VOLUME 95.7 fl (80-96); MEAN PLT VOLUME 12.3 fl (7.5-11.1); PLATELET COUNT 174 K/MM3 (134-434); RBC 5.41 M/mm3 (3.60-5.2); RDW 14.7 % (11.6-15.6)
[2020-09-04 13:54] LABS: ALBUMIN 1.3 g/dl (3.4-5.0); CALCIUM 8.4 mg/dL (8.5-10.1)
[2020-09-04 13:58] LABS: TOT PROT 5.3 g/dl (6.4-8.2)
[2020-09-04] MEDS: ZINC SULFATE 220 MG CAPSULE (FP) PO SCH (15:03)
[2020-09-04] MEDS: FAMOTIDINE 20 MG TABLET PO SCH ×2 (15:03→22:45)
[2020-09-04] MEDS: APIXABAN 2.5 MG TABLET PO SCH ×2 (15:03→22:45)
[2020-09-04] MEDS: MULTIVITAMINS THER W-MINERALS COMBO TABLET (FP) PO SCH (15:04)
[2020-09-04] MEDS: ASCORBIC ACID 500 MG TABLET (FP) PO SCH ×2 (15:04→22:45)
[2020-09-04] MEDS: AMINO ACIDS/PROTEIN HYDROLYS 30 ML LIQUID.PKT PO SCH ×2 (15:04→17:06)
[2020-09-04] MEDS: DEXAMETHASONE SOD PHOSPHATE 4 MG/1 ML VIAL IVPUSH SCH (15:06)
[2020-09-04] MEDS ORDERED: NOREPINEPHRINE BITARTRATE 16,000 MCG in SODIUM CHLORIDE 484 ML IV SCH (16:00)
[2020-09-04 16:39] LABS: ARTERIAL BLOOD GAS BASE EXCESS -24.5 mmol/L (-2-2); ARTERIAL BLOOD GAS PO2 104.5 mmHg (80-100)
[2020-09-04 16:44] LABS: ALLENS TEST POSITIVE; VENT MODE V-AC; VENT RATE 24
[2020-09-04] MEDS ORDERED: LACTATED RINGERS SOLUTION 1000 ML INFUS.BAG IV ONE (16:45)
[2020-09-04 16:52] LABS: ARTERIAL BLOOD GAS pH 6.914 (7.350-7.450)
[2020-09-04] MEDS ORDERED: PIPERACILLIN/TAZOB 2.25 GM 2.25 GM in DEXTROSE 5%-WATER - 50 ML IVPB SCH (18:00)
[2020-09-04] MEDS ORDERED: DEXTROSE 5%-WATER - 50 ML IVPB ONE (18:09)
[2020-09-04] MEDS ORDERED: PIPERACILLIN/TAZOBACTAM 2.25 GM VIAL IVPB ONE (18:09)
[2020-09-04] MEDS: PIPERACILLIN/TAZOB 2.25 GM 2.25 GM in DEXTROSE 5%-WATER - 50 ML IVPB SCH (18:10)
[2020-09-04] MEDS ORDERED: VASOPRESSIN 20 UNITS/ML VIAL IV ONE (20:24)
[2020-09-04] MEDS ORDERED: SODIUM BICARBONATE 8.4% - 50 ML ONE (20:36)
[2020-09-04] MEDS ORDERED: SODIUM BICARBONATE 8.4% 50 MEQ/50 ML DISP.SYRIN IVPUSH ONE (20:39)
[2020-09-04] MEDS ORDERED: NOREPINEPHRINE BITARTRATE 4 MG/4 ML ML IV ONE (22:11)
[2020-09-04] MEDS: SODIUM BICARBONATE 8.4% - 150 MEQ in DEXTROSE 5%-WATER - 1,000 ML IVPB SCH (22:45)
[2020-09-04] MEDS ORDERED: SODIUM CHLORIDE 1,000 ML IV SCH (22:45)
[2020-09-05] MEDS ORDERED: PIPERACILLIN/TAZOBACTAM 2.25 GM VIAL IVPB ONE ×2 (01:20→08:55)
[2020-09-05] MEDS ORDERED: DEXTROSE 5%-WATER - 50 ML IVPB ONE ×2 (01:20→08:55)
[2020-09-05] MEDS: PIPERACILLIN/TAZOB 2.25 GM 2.25 GM in DEXTROSE 5%-WATER - 50 ML IVPB SCH ×2 (01:27→09:04)
[2020-09-05] MEDS ORDERED: DEXTROSE 50%-WATER - 25 GM/50 ML VIAL ONE (03:15)
[2020-09-05] MEDS ORDERED: DEXTROSE 50%-WATER - 25 GM/50 ML VIAL IVPUSH ONE ×2 (06:04→13:04)
[2020-09-05] MEDS: INSULIN SLIDING SCALE (NOVOLOG) 1 VIAL SQ SCH ×2 (06:22→10:27)
[2020-09-05 07:00] LABS: ARTERIAL BLD GAS O2 SATURATION 95.4 mmHg (95-98); ARTERIAL BLOOD GAS BASE EXCESS -24.7 mmol/L (-2-2); ARTERIAL BLOOD GAS PO2 119.9 mmHg (80-100)
[2020-09-05] MEDS: SODIUM BICARBONATE 8.4% - 150 MEQ in DEXTROSE 5%-WATER - 1,000 ML IVPB SCH (07:20)
[2020-09-05 07:21] LABS: ALLENS TEST POSITIVE; ARTERIAL BLOOD GAS pH 6.936 (7.350-7.450)
[2020-09-05 07:23] LABS: VENT MODE A/C; VENT RATE 30
[2020-09-05 07:29] LABS: HEMATOCRIT 47.5 % (32.4-45.2); HEMOGLOBIN 14.2 GM/dL (10.7-15.3); MCH 30.1 pg (25.7-33.7); MCHC 29.9 g/dl (32.0-36.0); MEAN CELL VOLUME 100.6 fl (80-96); MEAN PLT VOLUME 12.1 fl (7.5-11.1); PLATELET COUNT 67 K/MM3 (134-434); RBC 4.72 M/mm3 (3.60-5.2); RDW 15.8 % (11.6-15.6)
[2020-09-05 07:37] LABS: ACTIVATED PTT 45.7 SECONDS (25.2-36.5)
[2020-09-05 08:21] LABS: PROTHROMBIN TIME (PATIENT) 126.3 SEC (9.7-13.0)
[2020-09-05] MEDS: AMINO ACIDS/PROTEIN HYDROLYS 30 ML LIQUID.PKT PO SCH (08:29)
[2020-09-05 08:30] LABS: INR 11.01 (0.83-1.09)
[2020-09-05] MEDS: ASCORBIC ACID 500 MG TABLET (FP) PO SCH (09:03)
[2020-09-05] MEDS: DEXAMETHASONE SOD PHOSPHATE 4 MG/1 ML VIAL IVPUSH SCH (09:04)
[2020-09-05] MEDS: MULTIVITAMINS THER W-MINERALS COMBO TABLET (FP) PO SCH (09:04)
[2020-09-05] MEDS: APIXABAN 2.5 MG TABLET PO SCH (09:04)
[2020-09-05] MEDS: ZINC SULFATE 220 MG CAPSULE (FP) PO SCH (09:04)
[2020-09-05] MEDS: FAMOTIDINE 20 MG TABLET PO SCH (09:12)
[2020-09-05 12:00] VITALS: TEMP 96.8
[2020-09-05 12:26] LABS: BLOOD UREA NITROGEN 61.8 mg/dL (7-18); CALCIUM 7.1 mg/dL (8.5-10.1)
[2020-09-05 12:30] LABS: CREATININE 3.1 mg/dL (0.55-1.3)
[2020-09-05] MEDS ORDERED: INSULIN REGULAR HUMAN 100 UNITS/ML *VIAL IVPUSH ONE ×2 (13:01)
[2020-09-05] MEDS ORDERED: CALCIUM GLUCONATE 10% - 1,000 MG/10 ML VIAL IVPUSH ONE (13:04)
[2020-09-05] MEDS ORDERED: PHYTONADIONE 10 MG/1 ML AMP IVPB ONE (13:08)
[2020-09-05] MEDS: VASOPRESSIN 40 UNITS in SODIUM CHLORIDE 98 ML IVPB SCH (13:15)
[2020-09-05 13:34] VITALS: BP 77/45; PULSE 62
== END 2020-09-05 15:00 | disposition expired | DRG 208 ==
LOC: JER 13:56 → JERBED 15:55 → JICU 17:21 → J4S 08-22 23:43 → J4W 08-31 19:16 → JICU 09-04 12:22
PROVIDERS: ADMIT Internal Medicine Pulmonary Disease; ATTEND Internal Medicine
PROC: XW13325 Transfusion of Convalescent Plasma (Nonautologous) into Peripheral Vein, Percutaneous Approach, New Technology Group 5 (ICD-10-PCS; 2020-08-22)
PROC: XW033E5 Introduction of Remdesivir Anti-infective into Peripheral Vein, Percutaneous Approach, New Technology Group 5 (ICD-10-PCS; 2020-08-22)
PROC: 0DH673Z Insertion of Infusion Device into Stomach, Via Natural or Artificial Opening (ICD-10-PCS; 2020-08-22)
PROC: 5A1945Z Respiratory Ventilation, 24-96 Consecutive Hours (ICD-10-PCS; principal; 2020-09-04)
PROC: 0BH17EZ Insertion of Endotracheal Airway into Trachea, Via Natural or Artificial Opening (ICD-10-PCS; 2020-09-04)
PROC: 05H633Z Insertion of Infusion Device into Left Subclavian Vein, Percutaneous Approach (ICD-10-PCS; 2020-09-04)
PROC: B547ZZA Ultrasonography of Left Subclavian Vein, Guidance (ICD-10-PCS; 2020-09-04)
PROC: 5A12012 Performance of Cardiac Output, Single, Manual (ICD-10-PCS; 2020-09-04)
DX: U07.1 COVID-19 (principal); E11.10 Type 2 diabetes mellitus with ketoacidosis without coma; J12.89 Other viral pneumonia; J96.01 Acute respiratory failure with hypoxia; R65.21 Severe sepsis with septic shock; A41.9 Sepsis, unspecified organism; N17.9 Acute kidney failure, unspecified; E87.2 Acidosis; E87.0 Hyperosmolality and hypernatremia; D72.829 Elevated white blood cell count, unspecified; I46.9 Cardiac arrest, cause unspecified; R57.8 Other shock; E87.5 Hyperkalemia; I95.9 Hypotension, unspecified; E78.5 Hyperlipidemia, unspecified; E86.0 Dehydration
CPT/HCPCS: 36415; 36430; 36600; 71045-TC-FY; 80048; 80053; 81003; 82010; 82248; 82550; 82553; 82728; 82803; 82962; 83605; 83615; 83735; 84100; 84484; 85025; 85027; 85379; 85384; 85610; 85730; 86140; 86850; 86870; 86900; 86901; 86902; 87040; 87086; 87899; 93005; 93010; 94002; 99291; C9399; C9803; J0131; J3480; P9017; U0003